=== PATIENT | female | born 1965 | race Caucasian/White ===

== ENCOUNTER 2023-12-06 14:31 | Emergency (ER) | payer OTHER ==
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
[2023-12-06 15:08] VITALS: RESP 16; TEMP 98.4
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
[2023-12-06] MEDS: DIPH,PERTUS(ACELL)TETVAC-LF 0.5 ML VIAL IM ONE (15:36)
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
[2023-12-06] MEDS: ACET/COD 300 MG/30 MG STARTER PACK 6 TAB BTL PO STA (16:31)
[2023-12-06 17:00] VITALS: BP 110/77; PULSE 89
== END 2023-12-06 16:35 | disposition home or self-care (01) ==
LOC: EC 14:31
DX: S16.1XXA Strain of muscle, fascia and tendon at neck level, initial encounter (principal); Z87.891 Personal history of nicotine dependence; Z23 Encounter for immunization; V89.2XXA Person injured in unspecified motor-vehicle accident, traffic, initial encounter; Y92.410 Unspecified street and highway as the place of occurrence of the external cause
CPT/HCPCS: 70450; 71045; 72125; 72170; 90471; 90715; 93005; 99285